=== PATIENT | female | born 1950 | race Hispanic/Latino ===

== ENCOUNTER 2019-07-24 01:22 | Observation (INO) | payer OTHER, MEDICARE ==
[~2019-07-24] VITALS: Ht 144.8 cm; Wt 57.2 kg
[~2019-07-24 01:22] MED LIST: GABA100C PO; GLIP5TAB11 PO; LACT10SO9 PO; LINA5TAB PO; LISI10TA7 PO; METF-446 PO; OMEP40CA13 PO
[2019-07-24] MEDS ORDERED: ONDANSETRON HCL 4 MG/2 ML VIAL ONE (01:45)
[2019-07-24 01:52] LABS: BASOPHILS % (AUTO) 0.5 % (0.0-5.0); EOSINOPHILS % (AUTO) 0.6 % (0.0-8.0); HEMATOCRIT 38.3 % (36-48); LYMPHOCYTES % (AUTO) 6.9 % (21.0-51.0); MEAN CORPUSCULAR HEMOGLOBIN 29.2 pg (27.0-33.0); MEAN CORPUSCULAR HGB CONC 34.1 g/dL (32.0-36.0); MEAN CORPUSCULAR VOLUME 85.7 fL (79-99); MONOCYTES % (AUTO) 4.8 % (3.0-13.0); NEUTROPHILS % (AUTO) 87.2 % (40.0-77.0); PLATELET COUNT (AUTO) 225 K/uL (130-400); RED BLOOD CELL COUNT(AUTO) 4.46 MIL/uL (4.00-5.50); RED CELL DISTRIBUTION WIDTH 13.8 % (11.0-15.5); WHITE BLOOD COUNT (AUTO) 13.4 K/uL (4.8-10.8)
[2019-07-24 01:58] LABS: CREATININE 0.7 mg/dL (0.5-1.5); POTASSIUM 3.6 mmol/L (3.5-5.1)
[2019-07-24 02:02] LABS: INR 0.92 (0.85-1.15); PARTIAL THROMBOPLASTIN TIME 23.5 SEC (26.3-35.5); PROTHROMBIN TIME 9.7 SEC (9.6-11.6)
[2019-07-24 02:03] LABS: ALBUMIN 3.8 g/dL (3.5-5.0); BILIRUBIN,TOTAL 1.6 mg/dL (0.2-1.0)
[2019-07-24] MEDS ORDERED: LACTATED RINGERS 1000ML 1,000 ML IV ONE (02:15)
[2019-07-24] MEDS ORDERED: MORPHINE SULFATE 4 MG/1ML SYG ONE (02:15)
[2019-07-24] MEDS ORDERED: FAMOTIDINE/PF 20 MG/2 ML VIAL IV ONE (02:16)
[2019-07-24] MEDS ORDERED: LIDOCAINE HCL 2% VISCOUS 15 ML UDCUP ONE (03:32)
[2019-07-24] MEDS ORDERED: MAG HYDROX/AL HYDROX/SIMETH ES 30 ML SUSP UDCUP ONE (03:33)
[2019-07-24 03:39] LABS: APPEARANCE,URINE Cloudy (CLEAR); BILIRUBIN,URINE Negative (NEGATIVE); COLOR,URINE Yellow (YELLOW); GLUCOSE, URINE (UA) 500 mg/dL (NEGATIVE); KETONES,URINE 40 mg/dL (NEGATIVE); LEUKOCYTE ESTERASE ,URINE Moderate (NEGATIVE); NITRATE,URINE Positive (NEGATIVE); OCCULT BLOOD,URINE Negative (NEGATIVE); PH,URINE >=9.0 (5.0-8.0); PROTEIN,URINE Trace mg/dL (NEGATIVE); UROBILINOGEN,URINE 0.2 mg/dL (0.2-1.0)
[2019-07-24] MEDS ORDERED: IOHEXOL-350 75 ML VIAL IV ONE (03:40)
[2019-07-24 03:46] LABS: AMPHET/METH SCREEN,URINE NEGATIVE (NEGATIVE); BARBITURATE SCREEN, URINE NEGATIVE (NEGATIVE); BENZODIAZEPINES SCREEN,URINE NEGATIVE (NEGATIVE); CANNABINOID SCREEN,URINE NEGATIVE (NEGATIVE); COCAINE SCREEN,URINE NEGATIVE (NEGATIVE); OPIATE SCREEN,URINE NEGATIVE (NEGATIVE); PHENCYCLIDINE SCREEN,URINE NEGATIVE (NEGATIVE)
[2019-07-24 03:49] LABS: BACTERIA,URINE Many /HPF (None Seen); RBC,URINE 0-1 /HPF (0-1)
[2019-07-24] MEDS ORDERED: CEFTRIAXONE SODIUM 1 GM ONE (03:57)
[2019-07-24] MEDS: SODIUM CHLORIDE 0.9% 1000ML 1,000 ML IV SCH (07:15)
[2019-07-24 08:30] VITALS: BP 145/76
[2019-07-24] MEDS: FAMOTIDINE/PF 20 MG/2 ML VIAL IV SCH ×2 (10:48→21:27)
[2019-07-24] MEDS: MAG HYDROX/AL HYDROX/SIMETH ES 30 ML SUSP UDCUP PO SCH ×5 (10:48→21:26)
[2019-07-24 12:00] VITALS: BP 155/72
[2019-07-24] MEDS: GABAPENTIN 100 MG CAPSULE PO SCH ×2 (13:57→21:27)
[2019-07-24 16:00] VITALS: BP 132/80
[2019-07-24] MEDS: METFORMIN HCL 500 MG TABLET PO SCH (16:33)
[2019-07-24] MEDS ORDERED: MORPHINE SULFATE 2 MG/ML 1ML SYG IM PRN (18:30)
[2019-07-24] MEDS ORDERED: ONDANSETRON HCL 4 MG/2 ML VIAL IVP PRN (18:30)
[2019-07-24 19:00] VITALS: BP 153/74
[2019-07-24] MEDS: INSULIN HUMULIN R 100 UNIT/ML 3ML SQ SCH (21:45)
[2019-07-25] VITALS: BP 95/48
[2019-07-25] MEDS: SODIUM CHLORIDE 0.9% 1000ML 1,000 ML IV SCH (03:24)
[2019-07-25 04:00] VITALS: BP 94/49
[2019-07-25] MEDS ORDERED: CEFTRIAXONE SODIUM 1 GM IVP SCH (04:00)
[2019-07-25] MEDS: INSULIN HUMULIN R 100 UNIT/ML 3ML SQ SCH ×2 (06:30→11:30)
[2019-07-25] MEDS ORDERED: PANTOPRAZOLE SODIUM 40 MG TABLET.DR PO SCH (07:30)
[2019-07-25 08:00] VITALS: BP 105/49
[2019-07-25] MEDS ORDERED: GLIPIZIDE 5 MG TABLET PO SCH (09:00)
[2019-07-25] MEDS: MAG HYDROX/AL HYDROX/SIMETH ES 30 ML SUSP UDCUP PO SCH (09:00)
[2019-07-25] MEDS ORDERED: LISINOPRIL 10 MG TABLET PO SCH (09:00)
[2019-07-25] MEDS ORDERED: LINAGLIPTIN 5 MG TABLET PO SCH (09:00)
[2019-07-25] MEDS: GABAPENTIN 100 MG CAPSULE PO SCH (10:00)
[2019-07-25] MEDS: FAMOTIDINE/PF 20 MG/2 ML VIAL IV SCH (10:01)
[2019-07-25] MEDS: METFORMIN HCL 500 MG TABLET PO SCH (10:01)
--- NOTE | 2019-07-25 11:48 | NUR ---
CM NOTE PT UP AND ABOUT IN ROOM - STATES DR. MAYNARD STATES SHE IS GOING HOME TODAY- PATIENT IS HAPPY AND STTES HER STOMACH FEESL SO MUCH BETTER. [facility] COMING FOR PICKUP. PT HERE IN [place]BS [place], NO CONCERNS VOICED/ NO TRIGGERS TO CM, DETAILED ASSESSMENT DEFERRED AT THIS TIME Addendum: 07/25/19 at 1153 by JARON RUBI RN CM Amended: Links added.
[2019-07-25 12:00] VITALS: BP 105/54
== END 2019-07-25 14:23 | disposition home or self-care (01) ==
LOC: EDH 01:22 → EDHIP 06:39 → 4DH 08:26
PROVIDERS: ADMIT Internal Medicine; ATTEND Internal Medicine
DX: K29.00 Acute gastritis without bleeding (principal); K21.9 Gastro-esophageal reflux disease without esophagitis; E11.9 Type 2 diabetes mellitus without complications; E78.5 Hyperlipidemia, unspecified; I10 Essential (primary) hypertension; Z79.899 Other long term (current) drug therapy
CPT/HCPCS: 36415; 74177; 76705; 80053; 80305; 81001; 82550; 82948 ×5; 83690; 84484; 85025; 85610; 85730; 87077; 87088; 87186; 93005; 96372 ×2; 96374; 96375; 96376; 99284; G0378 ×31; J0696 ×2; J1815; J2270; J2405; J3490 ×3; J7030; J7120; Q9967

== ENCOUNTER 2025-04-22 19:50 | Emergency (ER) | payer OTHER, MEDICAID ==
[~2025-04-22] VITALS: Ht 149.9 cm; Wt 64.9 kg
[~2025-04-22 19:50] MED LIST changes: -GLIP5TAB11 PO; +GLIP5TAB15 PO; -LACT10SO9 PO; +LISI10TA24 PO; -LISI10TA7 PO; -OMEP40CA13 PO; +OMEP40CA21 PO
--- NOTE | 2025-04-22 20:03 | ERN ---
General Chief Complaint: Weakness Stated Complaint: GBW, COVID + YESTERDAY Time Seen by MD: 19:53 Source: patient, EMS History of Present Illness Initial Comments 74-year-old female testing positive for COVID yesterday feeling weak and unable to eat. Associated nausea and vomiting. Brought in from residents to emergency room for further evaluation and stabilization. Allergies: Coded Allergies: No Known Allergies (Unverified Allergy, Unknown, 08/05/18) Home Meds Reported Medications Metformin HCl (Metformin HCl) 1,000 Mg Tablet, 1000 MG PO BID, TAB 08/05/18 Glipizide (Glipizide) 5 Mg Tablet, 5 MG PO DAILY, TAB 08/05/18 Lisinopril (Lisinopril) 10 Mg Tablet, 10 MG PO DAILY, TAB 08/05/18 Omeprazole (Omeprazole) 40 Mg Capsule.dr, 40 MG PO DAILY, CAP 08/05/18 Linagliptin (Tradjenta) 5 Mg Tablet, 5 MG PO DAILY, TAB 08/05/18 Gabapentin (Neurontin) 100 Mg Capsule, 100 MG PO TID, CAP 08/05/18 Constitutional: (-) chills, (-) diaphoresis, (-) fever, (-) malaise, (-) weakness, (-) other documentation EENTM: (-) eye pain, (-) blurred vision, (-) tearing, (-) double vision, (-) ear pain, (-) ear discharge, (-) nose pain, (-) nose congestion, (-) throat pain, (-) Throat swelling, (-) mouth pain, (-) tooth pain, (-) mouth swelling, (-) other documentation Respiratory: (+) cough Cardiovascular: (-) chest pain, (-) edema, (-) palpitations, (-) syncope, (-) dyspnea on exertion, (-) other documentation Gastrointestinal/Abdominal: (+) nausea, (+) vomiting Genitourinary: (-) vaginal discharge, (-) vaginal bleeding, (-) dysuria, (-) frequency, (-) hematuria, (-) pain, (-) other documentation Musculoskeletal: (-) Neck pain, (-) back pain, (-) Flank Pain, (-) joint pain, (-) joint swelling, (-) muscle pain, (-) muscle stiffness, (-) gout, (-) other documentation Neuro: (-) altered mental status, (-) headache, (-) syncope, (-) paralysis, (-) numbness, (-) seizure, (-) pre-existing deficit, (-) tremors, (-) weakness, (-) dizziness, (-) slurred speech, (-) vertigo, (-) other documentation Physical Exam General Appearance: (+) mild distress Orientation: (+) alert, (+) oriented x 3 Head/Face Trauma: No Eye: bilateral eye normal inspection, bilateral eye PERRL, bilateral eye EOMI Ear, Nose, Throat: (+) hearing grossly normal, (+) normal ENT inspection Neck: (+) normal inspection, (+) supple, (+) full range of motion Respiratory: (+) chest non-tender, (+) lungs clear, (+) well ventilated Heart: (+) regular, (+) no gallop Vascular: (+) no edema, (+) normal peripheral pulse Gastrointestinal: (+) soft, (+) non-tender, (+) bowel sound present Results Laboratory and Microbiology Lab and Micro Result Laboratory Tests Test 04/22/25 20:03 04/22/25 20:14 04/22/25 20:56 04/22/25 21:14 Influenza Type A Antigen Negative For Type A Influenza Type B Antigen Negative For Type B SARS-CoV-2 Antigen (Rapid) POSITIVE FOR SARS AG Group A Streptococcus Rapid negative (NEGATIVE) White Blood Count 9.6 K/uL (4.8-10.8) Red Blood Count 4.19 MIL/uL (4.00-5.50) Hemoglobin 11.8 g/dL (12.0-16.0) L Hematocrit 35.0 % (36-48) L Mean Corpuscular Volume 83.5 fL (79-99) Mean Corpuscular Hemoglobin 28.2 pg (27.0-33.0) Mean Corpuscular Hemoglobin Concent 33.7 g/dL (32.0-36.0) Red Cell Distribution Width 13.6 % (11.0-15.5) Platelet Count 214 K/uL (130-400) Mean Platelet Volume 10.0 fL (7.5-10.5) Immature Granulocyte % (Auto) 0.2 % (0-1) Neutrophils (%) (Auto) 81.3 % (40.0-77.0) H Lymphocytes (%) (Auto) 13.2 % (21.0-51.0) L Monocytes (%) (Auto) 4.5 % (3.0-13.0) Eosinophils (%) (Auto) 0.6 % (0.0-8.0) Basophils (%) (Auto) 0.2 % (0.0-5.0) Neutrophils # (Auto) 7.8 K/uL (1.8-7.7) H Lymphocytes # (Auto) 1.3 K/uL (1.0-4.8) Monocytes # (Auto) 0.4 K/uL (0.1-1.0) Eosinophils # (Auto) 0.06 K/uL (0.00-0.70) Basophils # (Auto) 0.02 K/uL (0.00-0.20) Absolute Immature Granulocyte (auto 0.02 K/uL (0-1) Nucleated Red Blood Cells 0.0 % (0.0-0.19) Sodium Level 139 mmol/L (136-145) Potassium Level 3.5 mmol/L (3.5-5.1) Chloride Level 104 mmol/L (101-111) Carbon Dioxide Level 28 mmol/L (21-32) Blood Urea Nitrogen 14 mg/dL (7-18) Creatinine 0.6 mg/dL (0.5-1.0) Glomerular Filtration Rate Calc 94 mL/min (>90) Random Glucose 263 mg/dL (70-105) H Hemoglobin A1c 9.3 % (4.0-6.0) H Estimated Average Glucose (eAG) 220 mg/dL (70-126) H Total Calcium 7.8 mg/dL (8.5-10.1) L Total Bilirubin 1.2 mg/dL (0.2-1.0) H Aspartate Amino Transf (AST/SGOT) 22 U/L (10-37) Alanine Aminotransferase (ALT/SGPT) 30 U/L (12-78) Alkaline Phosphatase 108 U/L (50-136) Troponin I High Sensitivity < 4 ng/L (4-50) L B-Type Natriuretic Peptide 38 pg/mL (0-100) Total Protein 6.8 g/dL (6.0-8.3) Albumin 3.0 g/dL (3.5-5.0) L Urine Color LIGHT-YELLOW (YELLOW) Urine Appearance CLOUDY (CLEAR) H Urine pH 7.0 (5.0-8.0) Urine Specific [place] 1.007 (1.001-1.031) Urine Protein NEGATIVE mg/dL (NEGATIVE) Urine Glucose (UA) 500 mg/dL (NEGATIVE) H Urine Ketones NEGATIVE mg/dL (NEGATIVE) Urine Occult Blood +- (TRACE) (NEGATIVE) H Urine Nitrate NEGATIVE (NEGATIVE) Urine Bilirubin NEGATIVE mg/dL (NEGATIVE) Urine Urobilinogen 0.2 mg/dL (0.2-1.0) Urine Leukocyte Esterase 500 Steven/uL (NEGATIVE) H Urine RBC 2-5 /HPF (0-1) H Urine WBC TNTC /HPF (0-1) H Urine Squamous Epithelial Cells RARE /HPF (0-2) Urine Bacteria MOD /HPF (None Seen) Urine Yeast FEW /HPF (None Seen) Whole Blood Glucose 263 MG/DL (70-110) H MDM MDM: Differential diagnosis: COVID, dehydration, UTI, additional upper respiratory tract infections, cardiac issues Rationale: Tests considered and ordered secondary to shared decision making include: Previous outside records reviewed: Old ER visits. Risk of complication and/or morbidity or mortality of patient management: None Medications-Per medication reconciliation Need for hospitalization: Patient does meet criteria for hospitalization. Need for emergency major/minor surgery: No There are no social concerns with this patient. Prescription drug management Prescriptions will include symptomatic care Patient's prior external medical records from other ER visits were reviewed by me as indicated. Prior testing and results from previous visits were reviewed. Prior tests were taken into account with medical decision making and resource utilization, independent historian/historians were used to obtain complete medical history. I independently interpreted the test that were performed, results were reviewed by me and considered findings on radiology if ordered. Patient has a urinary tract infection. Her last one on record was a Klebsiella UTI sensitive to Ancef. I have given her a g of Ancef and we will discharge her on Keflex. In addition I gave her 10 units of sliding scale insulin for her blood glucose of 280. ED Course Orders Procedure Category Date Status Time 12 Lead Ekg Tracing- EKG 04/22/25 Complete Technical 19:57 B-Type Natriuretic LAB 8/8/25 Complete Peptide 19:57 Comprehensive LAB 04/22/25 Complete Metabolic Panel 19:57 Cbc With Differential LAB 04/22/25 Complete 19:57 Influenza Type A & B, LAB 04/22/25 Complete Rapid 19:57 Rapid (Group A Strep) LAB 04/22/25 Complete 19:57 Urinalysis Profile LAB 04/22/25 Complete 19:57 Troponin I High LAB 04/22/25 Complete Sensitivity 19:57 Chest 1vw RAD 04/22/25 Taken 19:57 Lactated Ringers PHA 04/22/25 Complete 1000ml (Lactated 19:57 Covid19 (Sars Antigen LAB 04/22/25 Complete Rapid) 20:15 Hemoglobin A1c LAB 04/22/25 Complete 20:57 Insulin Regular, PHA 04/22/25 Complete Human 3ml (Humulin R 21:00 Culture Urine DEA 04/22/25 In Process 21:18 Current Medications Medications (Trade) Dose Ordered Sig/Gregorio Route PRN Reason Start Time Stop Time Status Last Admin Dose Admin Insulin Human Regular (humuLIN R 100 UNIT/ML 3ML) 10 unit ONCE ONCE SQ 04/22/25 21:00 04/22/25 21:01 DC 04/22/25 21:23 Lactated Ringer's (Lactated Ringers 1000ml) 1,000 ml BOLUS STAT IV 04/22/25 19:57 04/22/25 20:01 DC 04/22/25 20:27 Vital Signs Date Time Temp Pulse Resp B/P (MAP) Pulse Ox O2 Delivery O2 Flow Rate FiO2 04/22/25 20:17 98.1 78 18 150/55 97 Room Air* 0 21 04/22/25 19:53 98.1 80 18 137/58 100 Room Air 0 DX & DISP Disposition: Discharge Departure Impression: Primary Impression: Urinary tract infection Condition: Stable Scripts Cephalexin Monohydrate (Keflex) 500 Mg Cap 500 MG PO QID for 7 Days, #28 CAP Prov: YASMIN LEWIS MD 04/22/25 Additional Instructions: You have a urinary tract infection. I have sent a prescription to your pharmacy and given you a dose of antibiotics here in the emergency room. Please return if you end up with fevers chills unable to eat food nausea vomiting and worsening signs of a urinary tract infection. Referrals: JAZMINE MAYNARD MD (PCP) YASMIN LEWIS MD Apr 22, 2025 20:03
--- NOTE | 2025-04-22 20:08 | EKG ---
[facility] Test Date: 2025-04-22 Test Time: 20:03:46 Pat Name: LAURIE RICE Department: ED Room: Gender: F Parent Coach: [id number] : 1950 Requested By: YASMIN LEWIS Order Number: [id number] Reading MD: Harvey Kemp Measurements Intervals [place] Rate: 77 P: 27 [place]: 157 QRS: 17 QRSD: 90 T: 27 QT: 419 QTc: 474 Interpretive Statements Sinus rhythm Low voltage, precordial leads Compared to ECG 07/24/2019 01:48:11 Low QRS voltage now present Prolonged QT interval no longer present Electronically Signed On 04-23-2025 19:49:53 CDT by Harvey Kemp Please click the below link to view image of tracing.
[2025-04-22 20:17] VITALS: TEMP 98.1
[2025-04-22 20:24] LABS: IMMATURE GRANULOCYTE ABSOLUTE 0.02 K/uL (0-1); NUCLEATED RED BLOOD CELLS 0.0 % (0.0-0.19); PLATELET COUNT (AUTO) 214 K/uL (130-400); RED BLOOD CELL COUNT(AUTO) 4.19 MIL/uL (4.00-5.50); RED CELL DISTRIBUTION WIDTH 13.6 % (11.0-15.5); WHITE BLOOD COUNT (AUTO) 9.6 K/uL (4.8-10.8)
[2025-04-22] MEDS: LACTATED RINGERS 1000ML IV STA (20:27)
[2025-04-22 20:32] LABS: CREATININE 0.6 mg/dL (0.5-1.0); GLOMERULAR FILTR. RATE CALC 94.0 mL/min (>90); GLUCOSE,RANDOM 263.0 mg/dL (70-105); SODIUM SERUM 139.0 mmol/L (136-145); UREA NITROGEN, BLOOD 14.0 mg/dL (7-18)
[2025-04-22 20:34] LABS: RAPID GROUP A STREP negative (NEGATIVE)
[2025-04-22 20:41] LABS: ASPARTATE AMINOTRANSFERASE 22.0 U/L (10-37); TOTAL PROTEIN, SERUM 6.8 g/dL (6.0-8.3)
[2025-04-22 20:45] LABS: INFLUENZA TYPE A Negative For Type A (NEGATIVE); INFLUENZA TYPE B Negative For Type B (NEGATIVE)
[2025-04-22 21:16] LABS: APPEARANCE,URINE CLOUDY (CLEAR); GLUCOSE, URINE (UA) 500 mg/dL (NEGATIVE); LEUKOCYTE ESTERASE ,URINE 500 Leu/uL (NEGATIVE); NITRATE,URINE NEGATIVE (NEGATIVE); OCCULT BLOOD,URINE +- (TRACE) (NEGATIVE)
[2025-04-22 21:18] LABS: ADD UA MICROSCOPIC YES
[2025-04-22 21:24] LABS: SQUAMOUS EPITHELIAL CELL,UR RARE /HPF (0-2); YEAST,URINE BUDDING FEW /HPF (None Seen)
[2025-04-22] MEDS ORDERED: CEPH500B PO (21:46)
[2025-04-22 22:56] VITALS: BP 138/41; PULSE 71; RESP 17; O2SAT 97
--- NOTE | 2025-04-23 09:35 | HMCIMG ---
EXAM: CR Chest, single view. CLINICAL HISTORY: Covid positive. COMPARISON: Prior chest radiograph dated 05 August 2018. FINDINGS: The lungs show no infiltrate or other acute findings. No pleural effusion or pneumothorax. The cardiomediastinal silhouette is within normal limits. Mild atherosclerotic calcification of the aortic arch. No acute osseous abnormality. Degenerative changes in the mid and lower thoracic spine, bilateral acromioclavicular and glenohumeral joints. IMPRESSION: No acute cardiopulmonary pathology is evident. Compared to the prior chest radiograph, there is no significant interval change. /[place]
== END 2025-04-22 22:56 | disposition home or self-care (01) ==
LOC: EDBD 19:50 → EDH 19:50
DX: N39.0 Urinary tract infection, site not specified (principal); Z79.84 Long term (current) use of oral hypoglycemic drugs; Z79.899 Other long term (current) drug therapy; Z20.822 Contact with and (suspected) exposure to COVID-19
CPT/HCPCS: 99285; 96374; 71045; 96361; 87426; 83036; 84484; 80053; 83880; 85025; 87086 ×2; 87186; 87880; 87804 ×2; 82948; 81001; 36415; 93005; J1815; J7120; J0690